=== PATIENT | male | born 1965 ===

== ENCOUNTER 2025-02-02 23:10 | Emergency (ER) | payer OTHER ==
[~2025-02-02] VITALS: Ht 162.6 cm; Wt 77.3 kg
[2025-02-02 23:54] VITALS: TEMP 98.9
[2025-02-03] MEDS: KETOROLAC TROMETHAMINE 60 MG/2 ML VIAL IM ONE (00:48)
[2025-02-03 02:30] VITALS: BP 130/73; PULSE 71; RESP 16; O2SAT 97
== END 2025-02-03 05:17 | disposition home or self-care (01) ==
LOC: EMS 23:10
DX: S76.012A Strain of muscle, fascia and tendon of left hip, initial encounter (principal); W01.0XXA Fall on same level from slipping, tripping and stumbling without subsequent striking against object, initial encounter; Y93.89 Activity, other specified; Y92.000 Kitchen of unspecified non-institutional (private) residence as the place of occurrence of the external cause; Y99.8 Other external cause status
CPT/HCPCS: 99285; 73700; 73503; 96372; J1885